=== PATIENT | male | born 1955 | race Caucasian/White ===

== ENCOUNTER 2017-10-04 15:19 | Inpatient (IN) | payer MEDICARE, MEDICAID ==
[~2017-10-04] VITALS: Ht 180.3 cm; Wt 113.6 kg
[~2017-10-04 15:19] MED LIST: ALLO100T PO; ASPI-1053 PO; ATEN50TA PO; ATOR10TA70 PO; BACL10TA PO; CLON-527 PO; DOCU100C41 PO; EZET10TA14 PO; FENO134C PO; GABA-530 PO; GLIM2TAB2 PO; HYDR-565 PO; HYDR25TA4 PO; ISOS30TA6 PO; LANTUS SQ; LISI-604 PO; MELO-100 PO; METF850T PO; NITR0.4T51 SL; OMEP40CA37 PO; POTA8TAB8 PO; SAXA5TAB PO
[2017-10-04 15:53] LABS: HEMATOCRIT 41.8 % (42.0-52.0); HEMOGLOBIN 14.5 g/dl (14.0-17.9); MEAN CORPUSCULAR HEMOGLOBIN 30.6 PG (27.0-31.0); MEAN CORPUSCULAR HGB CONC 34.6 % (33.0-36.5); MEAN CORPUSCULAR VOLUME 88.2 FL (78-98); MEAN PLATELET VOLUME 8.6 FL (7.4-10.4); PLATELET COUNT 186 X10'3 (140-440); RED BLOOD COUNT 4.73 X10'6 (4.70-6.10); WHITE BLOOD COUNT 5.5 X10'3 (4.5-11.0)
[2017-10-04 16:02] LABS: PLATELET ESTIMATE NORMAL; TOTAL CELLS COUNTED 100
[2017-10-04 16:24] LABS: TOTAL CARBON DIOXIDE 16.4 MMOL/L (24-32); TROPONIN I < 0.04 NG/ML (0.0-0.05)
[2017-10-04 16:42] LABS: ALANINE AMINOTRANSFERASE 43 U/L (12-78); ALBUMIN 3.6 G/DL (3.4-5.0); ALBUMIN/GLOBULIN RATIO 1.1 (1.1-1.5); ALKALINE PHOSPHATASE 79 IU/L (46-116); ANION GAP 18 (8-16); BILIRUBIN,TOTAL 0.5 MG/DL (0.1-1.0); BLOOD UREA NITROGEN 20 MG/DL (7-18); BUN/CREATININE RATIO 18.3 (5.4-32.0); CALCIUM 10.1 MG/DL (8.5-10.1); CHLORIDE 99 MMOL/L (99-107); CREATININE 1.09 MG/DL (0.60-1.10); GLUCOSE 323 MG/DL (70-104); POTASSIUM 4.5 MMOL/L (3.5-5.1); SODIUM 133 MMOL/L (135-145); eGFR 69 ML/MIN
[2017-10-04 16:43] LABS: ASPARTATE AMINO TRANSFERASE 25 U/L (10-37)
[2017-10-04 17:13] LABS: ETHANOL < 0.010 GM/DL (0.0-0.010)
[2017-10-04 18:10] LABS: INR 0.9 INR; PARTIAL THROMBOPLASTIN TIME 25.6 SECONDS (24.5-30.9); PROTHROMBIN TIME 11.8 SECONDS (9-12)
[2017-10-04] MEDS ORDERED: normal saline 1000ML IV soln IVB ONE (18:15)
[2017-10-04] MEDS ORDERED: insulin regular, DKA only 100 UNIT in normal saline 100ml IV soln 99 ML IV SCH ×2 (18:37)
[2017-10-04] MEDS ORDERED: potassium CL 20mEq in D5-1/2NS 1,000 ML IV PRN (19:03)
[2017-10-04] MEDS ORDERED: normal saline 1000ml 1,000 ML IV SCH (19:03)
[2017-10-04 19:05] LABS: ABG HCO3 24.1 mmol/L (22.0-26.0); ABG OXYGEN SATURATION 93.3 % (95-98); ABG PCO2 (T) 40.7 mmHg (35.0-48.0); ABG PH (T) 7.388 (7.350-7.450); ABG PO2 (T) 68.4 mmHg (83-108); ALLEN'S TEST Positive; FCOHb 1.4 % (0.5-1.5); FMetHb 0.3 % (0.3-1.12); FO2Hb 91.7 % (94-100); PATIENT TEMPERATURE 36.6; TOTAL HEMOGLOBIN 14.4 G/dl (14.0-18.0)
[2017-10-04] MEDS: K and/or MAG REPLACEMENT MC SCH (19:05)
[2017-10-04] MEDS ORDERED: potassium Cl 40MEQ/NS 500ml 500 ML IV PRN ×2 (19:05)
[2017-10-04] MEDS ORDERED: potassium Cl 20 mEq SR tablet PO PRN ×2 (19:05)
[2017-10-04 20:05] LABS: CLARITY,URINE CLEAR (Clear); COLOR,URINE YELLOW (Yellow); GLUCOSE, URINE >=1000 mg/dl (Neg); KETONES,URINE NEGATIVE (Neg); LEUKOCYTE ESTERASE ,URINE NEGATIVE (Neg); NITRITES, URINE NEGATIVE (Neg); OCCULT BLOOD,URINE NEGATIVE (Neg); PROTEIN,URINE NEGATIVE (Neg); UROBILINOGEN,URINE 0.2 E.U/dL (0.2-1.0)
[2017-10-04] MEDS ORDERED: clonazePAM 1mg tablet PO PRN (20:10)
[2017-10-04 20:15] LABS: UA COLLECTION TYPE URINAL
[2017-10-04 20:16] LABS: BACTERIA,URINE NONE SEEN /HPF (Neg); RBC,URINE NONE SEEN /HPF (0-2); SQUAMOUS EPITHELIAL CELL,UR FEW /LPF (FEW); WBC,URINE NONE SEEN /HPF (0-4)
[2017-10-04] MEDS: gabapentin 400mg capsule PO SCH (20:50)
[2017-10-04] MEDS: HYDROcodone/acetaminophen 10/325mg tab PO PRN (20:51)
[2017-10-04] MEDS: normal saline 1000ml 1,000 ML IV SCH ×2 (20:51→23:07)
[2017-10-04 20:58] LABS: HEMOGLOBIN A1C 10.7 % (4.5-6.2)
[2017-10-04 20:59] LABS: ALBUMIN 3.2 G/DL (3.4-5.0); BLOOD UREA NITROGEN 16 MG/DL (7-18); BUN/CREATININE RATIO 19.5 (5.4-32.0); CALCIUM 8.8 MG/DL (8.5-10.1); CHLORIDE 102 MMOL/L (99-107); CREATININE 0.82 MG/DL (0.60-1.10); eGFR > 90 ML/MIN
[2017-10-04 21:12] LABS: GLUCOSE 120 MG/DL (70-104)
[2017-10-04 21:13] LABS: ACETAMINOPHEN < 2.0 UG/ML (10-30); ANION GAP 21 (8-16); POTASSIUM 3.8 MMOL/L (3.5-5.1); SODIUM 137 MMOL/L (135-145)
[2017-10-04 21:15] LABS: TOTAL CARBON DIOXIDE 14.3 MMOL/L (24-32)
[2017-10-04 22:40] VITALS: BP 140/68
[2017-10-05] VITALS (7 sets, daily range): BP systolic 107–131; BP diastolic 54–75
[2017-10-05] MEDS ORDERED: MESSAGE TO PHARMACY PO ONE (00:05)
[2017-10-05] MEDS ORDERED: dextrose ORAL solution 15 GM/59 ML bottle PO PRN ×2 (00:05)
[2017-10-05] MEDS ORDERED: dextrose 50%-water 50ml dispensing syringe IV PRN ×2 (00:05)
[2017-10-05] MEDS ORDERED: glucagon, human recombinant 1mg kit SUBCUT PRN (00:05)
[2017-10-05] MEDS ORDERED: insulin glargine (Lantus) pen - multi-dose SQ ONE (00:17)
[2017-10-05] MEDS ORDERED: insulin Lispro (HumaLOG) vial - multi-dose SQ ONE (00:17)
[2017-10-05] MEDS: pantoprazole 40mg Tablet.DR PO SCH ×2 (00:35→09:31)
[2017-10-05] MEDS: insulin Lispro (HumaLOG) vial - multi-dose SQ SCH ×3 (00:38→19:10)
[2017-10-05] MEDS: insulin glargine (Lantus) pen - multi-dose SQ SCH ×2 (00:39→21:54)
[2017-10-05 01:40] LABS: ALBUMIN 3.1 G/DL (3.4-5.0); BLOOD UREA NITROGEN 16 MG/DL (7-18); BUN/CREATININE RATIO 19.3 (5.4-32.0); CALCIUM 9.1 MG/DL (8.5-10.1); CHLORIDE 101 MMOL/L (99-107); CREATININE 0.83 MG/DL (0.60-1.10); HDL CHOLESTEROL 21 MG/DL (35-60); LDL CHOLESTEROL 52 MG/DL (50-100); TOTAL CARBON DIOXIDE 15.6 MMOL/L (24-32); eGFR > 90 ML/MIN
[2017-10-05 01:41] LABS: TRIGLYCERIDES 1630 MG/DL (20-135)
[2017-10-05 01:57] LABS: ANION GAP 20 (8-16); CHOL/HDL RATIO 13.7 (0.00-4.99); CHOLESTEROL 288 MG/DL (0-200); GLUCOSE 336 MG/DL (70-104); SODIUM 137 MMOL/L (135-145)
[2017-10-05] MEDS: HYDROcodone/acetaminophen 10/325mg tab PO PRN ×3 (05:29→20:14)
[2017-10-05] MEDS: normal saline 1000ml 1,000 ML IV SCH (05:31)
[2017-10-05] MEDS ORDERED: atenolol 50mg tablet PO SCH (08:00)
[2017-10-05] MEDS ORDERED: lisinopril 10 MG tablet PO SCH (08:00)
[2017-10-05] MEDS ORDERED: LORazepam 2 mg/ml vial IM PRN (09:05)
[2017-10-05] MEDS: gabapentin 400mg capsule PO SCH ×3 (09:16→21:54)
[2017-10-05] MEDS: atorvastatin 20mg tablet PO SCH (09:16)
[2017-10-05] MEDS: baclofen 10mg tablet PO SCH ×2 (09:16→20:09)
[2017-10-05] MEDS: clopidogrel 75mg tablet PO SCH (09:16)
[2017-10-05] MEDS: aspirin 81mg tablet.DR PO SCH (09:17)
[2017-10-05] MEDS: isosorbide mononitrate 30mg tab.SR.24H PO SCH (09:17)
[2017-10-05] MEDS: K and/or MAG REPLACEMENT MC SCH (09:19)
[2017-10-06 02:02] VITALS: BP_SYST 129; BP_SYST 143; BP_DIAS 69; BP_DIAS 86
[2017-10-06] MEDS: HYDROcodone/acetaminophen 10/325mg tab PO PRN ×4 (02:11→23:11)
[2017-10-06 06:00] VITALS: BP 135/62
[2017-10-06] MEDS: isosorbide mononitrate 30mg tab.SR.24H PO SCH (08:00)
[2017-10-06] MEDS: K and/or MAG REPLACEMENT MC SCH (08:00)
[2017-10-06] MEDS: baclofen 10mg tablet PO SCH ×2 (08:08→19:27)
[2017-10-06] MEDS: gabapentin 400mg capsule PO SCH ×4 (08:08→23:08)
[2017-10-06] MEDS: clopidogrel 75mg tablet PO SCH (08:08)
[2017-10-06] MEDS: aspirin 81mg tablet.DR PO SCH (08:08)
[2017-10-06] MEDS: atorvastatin 20mg tablet PO SCH (08:08)
[2017-10-06] MEDS: pantoprazole 40mg Tablet.DR PO SCH (08:09)
[2017-10-06] MEDS: insulin Lispro (HumaLOG) vial - multi-dose SQ SCH ×3 (08:24→19:23)
[2017-10-06 12:04] VITALS: BP 138/71
[2017-10-06 15:14] VITALS: BP 106/76
[2017-10-06 18:00] VITALS: BP 123/71
[2017-10-06] MEDS: insulin glargine (Lantus) pen - multi-dose SQ SCH (21:24)
[2017-10-06 22:00] VITALS: BP 127/68
[2017-10-07] MEDS: HYDROcodone/acetaminophen 10/325mg tab PO PRN ×2 (04:44→10:35)
[2017-10-07 06:42] VITALS: BP 139/60
[2017-10-07] MEDS: pantoprazole 40mg Tablet.DR PO SCH (07:14)
[2017-10-07] MEDS: gabapentin 400mg capsule PO SCH (07:14)
[2017-10-07] MEDS: aspirin 81mg tablet.DR PO SCH (07:14)
[2017-10-07] MEDS: baclofen 10mg tablet PO SCH (07:14)
[2017-10-07] MEDS: atorvastatin 20mg tablet PO SCH (07:15)
[2017-10-07] MEDS: isosorbide mononitrate 30mg tab.SR.24H PO SCH (07:15)
[2017-10-07] MEDS: clopidogrel 75mg tablet PO SCH (07:15)
[2017-10-07] MEDS: K and/or MAG REPLACEMENT MC SCH (08:00)
== END 2017-10-07 14:45 | DRG 64 ==
LOC: ER 15:19 → ED HOLD 20:07 → EDBEDREQ 21:49 → ORTHO 4S 22:37
PROVIDERS: ADMIT Family Medicine; ATTEND Family Medicine
DX: I63.9 Cerebral infarction, unspecified (principal); E11.10 Type 2 diabetes mellitus with ketoacidosis without coma; E11.40 Type 2 diabetes mellitus with diabetic neuropathy, unspecified; E11.51 Type 2 diabetes mellitus with diabetic peripheral angiopathy without gangrene; E87.2 Acidosis; G81.94 Hemiplegia, unspecified affecting left nondominant side; E78.5 Hyperlipidemia, unspecified; G47.30 Sleep apnea, unspecified; I11.0 Hypertensive heart disease with heart failure; I25.10 Atherosclerotic heart disease of native coronary artery without angina pectoris; I50.9 Heart failure, unspecified; J44.9 Chronic obstructive pulmonary disease, unspecified; K21.9 Gastro-esophageal reflux disease without esophagitis; M10.9 Gout, unspecified; M19.90 Unspecified osteoarthritis, unspecified site; G89.29 Other chronic pain; M54.5 Low back pain; R47.1 Dysarthria and anarthria; I25.2 Old myocardial infarction; Z95.1 Presence of aortocoronary bypass graft; Z95.5 Presence of coronary angioplasty implant and graft; Z88.1 Allergy status to other antibiotic agents; Z79.82 Long term (current) use of aspirin; Z79.899 Other long term (current) drug therapy; Z79.4 Long term (current) use of insulin; Z87.891 Personal history of nicotine dependence; Z82.49 Family history of ischemic heart disease and other diseases of the circulatory system
CPT/HCPCS: 36415; 36600; 70450; 70544; 70551; 71045; 80048; 80053; 80061; 80320; 80329; 81001; 82803; 82948; 83036; 83605; 83880; 84484; 85018; 85025; 87070; 92507; 92616; 93005; 93306; 93880; 96360; 96361; 97110; 97116; 97161; 97530; 99285; J1815; J2060; J7030

== ENCOUNTER 2018-06-10 02:41 | Emergency (ER) | payer MEDICARE, MEDICAID ==
[~2018-06-10] VITALS: Ht 180.3 cm; Wt 112.2 kg
[~2018-06-10 02:41] MED LIST changes: -ATOR10TA70 PO; -FENO134C PO; -GLIM2TAB2 PO; +HYDR-4353 PO; -HYDR-565 PO; -SAXA5TAB PO
[2018-06-10] MEDS ORDERED: nitroGLYCERIN 0.4mg SUBLingual tab SL PRN (02:50)
[2018-06-10] MEDS ORDERED: normal saline 1000ML IV soln IVB ONE (03:00)
[2018-06-10 03:09] LABS: BASOPHILS # (AUTO) 0.1 X10'3 (0-0.2); BASOPHILS % (AUTO) 0.8 % (0-1); EOSINOPHILS # (AUTO) 0.3 X10'3 (0-0.9); EOSINOPHILS % (AUTO) 4.1 % (0-6); HEMATOCRIT 41.8 % (42.0-52.0); HEMOGLOBIN 14.2 g/dl (14.0-17.9); LYMPHOCYTES # (AUTO) 2.4 X10'3 (1.1-4.8); LYMPHOCYTES % (AUTO) 34.1 % (21-51); MEAN CORPUSCULAR HEMOGLOBIN 30.1 PG (27.0-31.0); MEAN CORPUSCULAR VOLUME 88.5 FL (78-98); MEAN PLATELET VOLUME 8.3 FL (7.4-10.4); MONOCYTES # (AUTO) 0.4 X10'3 (0-0.9); MONOCYTES % (AUTO) 5.8 % (2-12); NEUTROPHILS # (AUTO) 3.9 X10'3 (1.8-7.7); NEUTROPHILS % (AUTO) 55.2 % (42-75); PLATELET COUNT 181 X10'3 (140-440); RED BLOOD COUNT 4.72 X10'6 (4.70-6.10); RED CELL DISTRIBUTION WIDTH 14.4 % (11.5-14.5)
[2018-06-10 03:20] LABS: INR 0.9 INR; PARTIAL THROMBOPLASTIN TIME 29 SECONDS (22-32); PROTHROMBIN TIME 9.6 SECONDS (9.0-12.0)
[2018-06-10 03:39] LABS: ALANINE AMINOTRANSFERASE 38 U/L (12-78); ALBUMIN 3.4 G/DL (3.4-5.0); ALBUMIN/GLOBULIN RATIO 1.1 (1.1-1.5); ALKALINE PHOSPHATASE 80 IU/L (46-116); ANION GAP 13 (8-16); BILIRUBIN,TOTAL 0.3 MG/DL (0.1-1.0); BLOOD UREA NITROGEN 18 MG/DL (7-18); BUN/CREATININE RATIO 16.5 (5.4-32.0); CALCIUM 8.6 MG/DL (8.5-10.1); CHLORIDE 100 MMOL/L (99-107); CREATININE 1.09 MG/DL (0.60-1.10); SODIUM 137 MMOL/L (135-145); TOTAL CARBON DIOXIDE 23.6 MMOL/L (24-32); TOTAL PROTEIN 6.6 G/DL (6.4-8.2); eGFR 69 ML/MIN
[2018-06-10 03:42] LABS: ASPARTATE AMINO TRANSFERASE 4 U/L (10-37); GLUCOSE 250 MG/DL (70-104); POTASSIUM 3.6 MMOL/L (3.5-5.1)
[2018-06-10 05:47] VITALS: BP 134/66
== END 2018-06-10 05:50 | disposition home or self-care (01) ==
LOC: ER 02:41
DX: R07.89 Other chest pain (principal); I25.10 Atherosclerotic heart disease of native coronary artery without angina pectoris; I11.0 Hypertensive heart disease with heart failure; I50.9 Heart failure, unspecified; E78.00 Pure hypercholesterolemia, unspecified; I25.2 Old myocardial infarction; J44.9 Chronic obstructive pulmonary disease, unspecified; K21.9 Gastro-esophageal reflux disease without esophagitis; E11.9 Type 2 diabetes mellitus without complications; M19.90 Unspecified osteoarthritis, unspecified site; G89.29 Other chronic pain; M10.9 Gout, unspecified; Z95.5 Presence of coronary angioplasty implant and graft; Z95.1 Presence of aortocoronary bypass graft; Z98.890 Other specified postprocedural states; Z87.891 Personal history of nicotine dependence; Z88.1 Allergy status to other antibiotic agents; Z79.82 Long term (current) use of aspirin; Z79.899 Other long term (current) drug therapy; Z79.4 Long term (current) use of insulin
CPT/HCPCS: 36415; 71045; 80053; 82948; 83880; 84484; 85025; 85610; 85730; 93005; 99284; J7030

== ENCOUNTER 2018-07-13 14:01 | Day surgery (SDC) | payer MEDICARE, MEDICAID ==
[2018-07-08 09:11] LABS: BASOPHILS % (AUTO) 0.5 % (0-1); EOSINOPHILS # (AUTO) 0.3 X10'3 (0-0.9); EOSINOPHILS % (AUTO) 3.6 % (0-6); HEMATOCRIT 50.1 % (42.0-52.0); HEMOGLOBIN 16.5 g/dl (14.0-17.9); LYMPHOCYTES % (AUTO) 27.7 % (21-51); MEAN CORPUSCULAR HEMOGLOBIN 29.5 PG (27.0-31.0); MEAN CORPUSCULAR VOLUME 89.6 FL (78-98); MEAN PLATELET VOLUME 8.6 FL (7.4-10.4); MONOCYTES # (AUTO) 0.3 X10'3 (0-0.9); MONOCYTES % (AUTO) 4.4 % (2-12); NEUTROPHILS # (AUTO) 4.5 X10'3 (1.8-7.7); NEUTROPHILS % (AUTO) 63.8 % (42-75); PLATELET COUNT 202 X10'3 (140-440); RED BLOOD COUNT 5.59 X10'6 (4.70-6.10); RED CELL DISTRIBUTION WIDTH 14.4 % (11.5-14.5); WHITE BLOOD COUNT 7.1 X10'3 (4.5-11.0)
[2018-07-08 09:38] LABS: PARTIAL THROMBOPLASTIN TIME 30 SECONDS (22-32); PROTHROMBIN TIME 9.9 SECONDS (9.0-12.0)
[2018-07-08 09:45] LABS: ALBUMIN 4.1 G/DL (3.4-5.0); ANION GAP 10 (8-16); BLOOD UREA NITROGEN 12 MG/DL (7-18); BUN/CREATININE RATIO 12.9 (5.4-32.0); CALCIUM 9.7 MG/DL (8.5-10.1); CHLORIDE 101 MMOL/L (99-107); CREATININE 0.93 MG/DL (0.60-1.10); GLUCOSE 174 MG/DL (70-104); POTASSIUM 4.1 MMOL/L (3.5-5.1); SODIUM 140 MMOL/L (135-145); TOTAL CARBON DIOXIDE 28.9 MMOL/L (24-32); eGFR 83 ML/MIN
[~2018-07-13] VITALS: Ht 180.3 cm; Wt 112.9 kg
[2018-07-13] MEDS ORDERED: LIDOcaine/PRILOcaine 5gm cream TP ONE (14:25)
[2018-07-13] MEDS ORDERED: diphenhydrAMINE 25mg capsule PO PRN (14:25)
[2018-07-13] MEDS ORDERED: LORazepam 0.5 MG tablet PO PRN (14:25)
[2018-07-13 14:30] VITALS: BP 126/77
[2018-07-13] MEDS ORDERED: GABA800T11 PO (14:57)
[2018-07-13] MEDS ORDERED: CLOP75TA35 PO (14:57)
[2018-07-13] MEDS ORDERED: INSU100V9 SQ (14:57)
[2018-07-13] MEDS ORDERED: fentaNYL/PF 50MCG/1 ML 2ML syringe ONE (18:50)
[2018-07-13] MEDS ORDERED: LIDOcaine 1% (10mg/ml)w/preservative injection 20ml MDV ONE (18:50)
[2018-07-13] MEDS ORDERED: midazolam 2 mg/2 ml injection ONE (18:50)
[2018-07-13] MEDS ORDERED: iohexol 350MG/ML 100ml bottle IV ONE (18:50)
[2018-07-13] MEDS ORDERED: iohexol 350 MG/ML 50ML vial IV ONE ×2 (19:12→19:14)
[2018-07-13 19:30] VITALS: BP 127/68
[2018-07-13] MEDS ORDERED: nitroGLYCERIN 0.4mg SUBLingual tab SL PRN (19:45)
[2018-07-13] MEDS ORDERED: proCHLORperazine 10 MG/2 ml inj IV PRN (19:45)
[2018-07-13] MEDS ORDERED: ondansetron/PF 4mg/2ml inj IV PRN (19:45)
[2018-07-13] MEDS ORDERED: HYDROcodone/acetaminophen 5mg/325mg tablet PO PRN (19:45)
[2018-07-13] MEDS ORDERED: OXAZEpam 15mg capsule PO PRN (19:45)
[2018-07-13] MEDS ORDERED: HYDROcodone/acetaminophen 10/325mg tab PO PRN (19:45)
[2018-07-13 19:46] VITALS: BP 129/69
[2018-07-13 20:01] VITALS: BP 128/58
[2018-07-13 20:16] VITALS: BP 109/52
[2018-07-13 20:40] VITALS: BP 126/61
== END 2018-07-13 21:05 | disposition home or self-care (01) ==
LOC: SSTAY O 14:01
PROVIDERS: ATTEND Internal Medicine Interventional Cardiology
DX: I25.810 Atherosclerosis of coronary artery bypass graft(s) without angina pectoris (principal); I10 Essential (primary) hypertension; E78.5 Hyperlipidemia, unspecified; G47.33 Obstructive sleep apnea (adult) (pediatric); I35.1 Nonrheumatic aortic (valve) insufficiency; I65.29 Occlusion and stenosis of unspecified carotid artery; E11.42 Type 2 diabetes mellitus with diabetic polyneuropathy; J44.9 Chronic obstructive pulmonary disease, unspecified; K21.9 Gastro-esophageal reflux disease without esophagitis; M06.9 Rheumatoid arthritis, unspecified; H91.8X3 Other specified hearing loss, bilateral; F10.21 Alcohol dependence, in remission; F15.11 Other stimulant abuse, in remission; Z86.79 Personal history of other diseases of the circulatory system; Z86.14 Personal history of Methicillin resistant Staphylococcus aureus infection; Z95.1 Presence of aortocoronary bypass graft; Z95.5 Presence of coronary angioplasty implant and graft; Z79.82 Long term (current) use of aspirin; Z79.84 Long term (current) use of oral hypoglycemic drugs; Z79.891 Long term (current) use of opiate analgesic; Z79.4 Long term (current) use of insulin; Z79.01 Long term (current) use of anticoagulants; Z88.1 Allergy status to other antibiotic agents; Z86.73 Personal history of transient ischemic attack (TIA), and cerebral infarction without residual deficits; Z86.74 Personal history of sudden cardiac arrest; Z87.891 Personal history of nicotine dependence; Z87.01 Personal history of pneumonia (recurrent); Z98.890 Other specified postprocedural states; Z79.899 Other long term (current) drug therapy; Z88.8 Allergy status to other drugs, medicaments and biological substances; Z82.49 Family history of ischemic heart disease and other diseases of the circulatory system; Z83.6 Family history of other diseases of the respiratory system
CPT/HCPCS: 36415; 80048; 82948; 85025; 85610; 85730; 93005; 93459; 93567; 99152; 99153; A6257; J1644; J2001; J2250; J3010; Q0163; Q9967; A4620; C1769

== ENCOUNTER 2018-12-24 04:16 | Emergency (ER) | payer MEDICARE, MEDICAID ==
[~2018-12-24] VITALS: Ht 182.9 cm; Wt 112.7 kg
[~2018-12-24 04:16] MED LIST changes: +CLOP75TA35 PO; -GABA-530 PO; +GABA800T11 PO; +INSU100V9 SQ; -LANTUS SQ
[2018-12-24 04:17] VITALS: BP 149/99
[2018-12-24] MEDS ORDERED: AMOX-422 PO (04:21)
[2018-12-24] MEDS ORDERED: amox tr/potassium clavulanate 875/125mg TAB PO ONE (04:25)
== END 2018-12-24 04:37 | disposition home or self-care (01) ==
LOC: ER 04:17
DX: K04.7 Periapical abscess without sinus (principal); K02.9 Dental caries, unspecified; R60.9 Edema, unspecified; I25.10 Atherosclerotic heart disease of native coronary artery without angina pectoris; E78.00 Pure hypercholesterolemia, unspecified; I25.2 Old myocardial infarction; J44.9 Chronic obstructive pulmonary disease, unspecified; K21.9 Gastro-esophageal reflux disease without esophagitis; E11.9 Type 2 diabetes mellitus without complications; M19.90 Unspecified osteoarthritis, unspecified site; G89.29 Other chronic pain; M10.9 Gout, unspecified; I11.0 Hypertensive heart disease with heart failure; I50.9 Heart failure, unspecified; Z95.5 Presence of coronary angioplasty implant and graft; Z95.1 Presence of aortocoronary bypass graft; Z98.890 Other specified postprocedural states; Z87.891 Personal history of nicotine dependence; Z86.14 Personal history of Methicillin resistant Staphylococcus aureus infection; Z79.4 Long term (current) use of insulin; Z88.1 Allergy status to other antibiotic agents; Z79.899 Other long term (current) drug therapy
CPT/HCPCS: 99283

== ENCOUNTER 2019-02-21 02:23 | Emergency (ER) | payer MEDICARE, MEDICAID ==
[~2019-02-21] VITALS: Ht 182.9 cm; Wt 112.7 kg
[~2019-02-21 02:23] MED LIST changes: -EZET10TA14 PO; +EZET10TA21 PO; +OMEP40CA13 PO; -OMEP40CA37 PO
[2019-02-21] MEDS ORDERED: dexamethasone sod phosphate 10mg/ml inj IV STA ×2 (02:47→22:53)
[2019-02-21] MEDS ORDERED: diphenhydrAMINE 50 mg/ml inj IV ONE (02:50)
[2019-02-21] MEDS ORDERED: famotidine/PF 10 mg/ml inj IV ONE (02:50)
[2019-02-21] MEDS ORDERED: metroNIDAZOLE-Flagyl 500mg/NS 100 ML IV STA ×3 (02:56→22:53)
[2019-02-21] MEDS ORDERED: CLINDAMYCIN/D5W 900mg/50ml 50 ML IV ONE ×2 (03:00→22:55)
[2019-02-21] MEDS ORDERED: normal saline 1000ML IV soln IVB ONE (03:05)
[2019-02-21] MEDS ORDERED: iohexol 300mg/ml 100ml inj. ONE (04:18)
--- NOTE | 2019-02-21 05:13 | NUR ---
Per Per, Lab- another 6ml of blood need for ordered labs. Primary RN Maribel notified.
[2019-02-21 05:25] LABS: ALANINE AMINOTRANSFERASE 40 U/L (12-78); ALBUMIN 3.8 G/DL (3.4-5.0); ALBUMIN/GLOBULIN RATIO 1.4 (1.1-1.5); ALKALINE PHOSPHATASE 64 IU/L (46-116); ANION GAP 9 (8-16); ASPARTATE AMINO TRANSFERASE 21 U/L (10-37); BILIRUBIN,TOTAL 0.9 MG/DL (0.1-1.0); BLOOD UREA NITROGEN 14 MG/DL (7-18); BUN/CREATININE RATIO 15.4 (5.4-32.0); CALCIUM 9.1 MG/DL (8.5-10.1); CHLORIDE 103 MMOL/L (99-107); CREATININE 0.91 MG/DL (0.60-1.10); GLUCOSE 161 MG/DL (70-104); MAGNESIUM 1.7 MG/DL (1.5-2.4); SODIUM 138 MMOL/L (135-145); TOTAL CARBON DIOXIDE 25.6 MMOL/L (24-32); TOTAL PROTEIN 6.5 G/DL (6.4-8.2); eGFR 84 ML/MIN
[2019-02-21 05:27] LABS: BASOPHILS % (AUTO) 0.2 % (0-1); EOSINOPHILS # (AUTO) 0.1 X10'3 (0-0.9); EOSINOPHILS % (AUTO) 1.4 % (0-6); HEMATOCRIT 41.7 % (42.0-52.0); HEMOGLOBIN 14.1 g/dl (14.0-17.9); LYMPHOCYTES # (AUTO) 0.8 X10'3 (1.1-4.8); MEAN CORPUSCULAR HEMOGLOBIN 30.5 PG (27.0-31.0); MEAN CORPUSCULAR HGB CONC 33.8 g/dL (33.0-36.5); MEAN CORPUSCULAR VOLUME 90.4 FL (78-98); MEAN PLATELET VOLUME 8.3 FL (7.4-10.4); MONOCYTES # (AUTO) 0.3 X10'3 (0-0.9); NEUTROPHILS # (AUTO) 6.2 X10'3 (1.8-7.7); NEUTROPHILS % (AUTO) 83.4 % (42-75); PLATELET COUNT 135 X10'3 (140-440); RED BLOOD COUNT 4.62 X10'6 (4.70-6.10); RED CELL DISTRIBUTION WIDTH 14.6 % (11.5-14.5); WHITE BLOOD COUNT 7.4 X10'3 (4.5-11.0)
--- NOTE | 2019-02-21 06:34 | NUR ---
pt out to ct via val with health care facilities inspector
--- NOTE | 2019-02-21 06:51 | NUR ---
RETURNED FROM CT.
[2019-02-21] MEDS ORDERED: MESSAGE TO NURSING PO ONE (07:00)
[2019-02-21] MEDS ORDERED: clonazePAM 1mg tablet PO ONE (08:05)
[2019-02-21] MEDS ORDERED: DULO60CA65 PO (12:42)
[2019-02-21] MEDS ORDERED: OMEP20CA11 PO (12:44)
[2019-02-21] MEDS ORDERED: METF-438 PO (12:45)
[2019-02-21] MEDS ORDERED: ATOR40TA72 PO (12:48)
[2019-02-21] MEDS ORDERED: HYDROcodone/acetaminophen 10/325mg tab PO PRN (13:35)
[2019-02-21] MEDS ORDERED: nitroGLYCERIN 0.4mg SUBLingual tab SL PRN (13:35)
[2019-02-21] MEDS ORDERED: potassium chloride 8mEq ER tablet PO SCH (14:00)
[2019-02-21] MEDS ORDERED: docusate sod 100mg capsule PO SCH (14:00)
[2019-02-21] MEDS ORDERED: duloxetine 30mg CAPSULE.DR PO SCH (14:00)
[2019-02-21] MEDS ORDERED: pantoprazole 40mg Tablet.DR PO SCH (14:00)
[2019-02-21] MEDS ORDERED: aspirin 81mg tab.chew PO SCH (14:00)
[2019-02-21] MEDS ORDERED: isosorbide mononitrate 30mg tab.SR.24H PO SCH (14:00)
[2019-02-21] MEDS ORDERED: lisinopril 5mg tablet PO SCH (14:00)
[2019-02-21] MEDS ORDERED: clopidogrel 75mg tablet PO SCH (14:00)
[2019-02-21] MEDS ORDERED: ezetimibe 10mg tablet PO SCH (14:00)
[2019-02-21] MEDS ORDERED: HYDROchlorothiazide 25mg tablet PO SCH (14:00)
[2019-02-21] MEDS ORDERED: atenolol 50mg tablet PO SCH (14:00)
[2019-02-21] MEDS ORDERED: atorvastatin 20mg tablet PO SCH (14:00)
[2019-02-21] MEDS: gabapentin 400mg capsule PO SCH ×2 (14:38→20:52)
[2019-02-21] MEDS: clonazePAM 1mg tablet PO SCH ×2 (14:39→20:37)
[2019-02-21] MEDS: metFORMIN 500mg tablet PO SCH ×2 (14:39→20:00)
[2019-02-21] MEDS ORDERED: clindamycin 600mg/D5W 50ml 50 ML IV ONE (15:20)
--- NOTE | 2019-02-21 20:27 | NUR ---
Patient continues to rest comfortably in the hallway awaiting transportation to [facility]. Patient changed into a gown for transport. Report called to LISET Ash of [facility].
[2019-02-21] MEDS ORDERED: insulin glargine (Lantus) pen - multi-dose SQ SCH (21:00)
--- NOTE | 2019-02-21 21:52 | NUR ---
Patient sleeping comfortably in the [facility].
[2019-02-21] MEDS ORDERED: metroNIDAZOLE-Flagyl 500mg/NS 100 ML IV SCH (23:00)
--- NOTE | 2019-02-21 23:01 | NUR ---
Updated [facility] charge nurse Vance on the delayed patient transfer due to heavy EMS traffic. He requests a phone call when EMS arrives for transport.
[2019-02-21 23:34] VITALS: BP 136/64
--- NOTE | 2019-02-21 23:36 | NUR ---
EMS transport has arrived for the patient. Vance contacted at [place] to update him.
[2019-02-22] MEDS ORDERED: CLINDAMYCIN/D5W 900mg/50ml 50 ML IV SCH (07:00)
[2019-02-22] MEDS ORDERED: dexamethasone sod phosphate 10mg/ml inj IV SCH (08:00)
[2019-02-22] MEDS ORDERED: allopurinol 300 MG tablet PO SCH (08:00)
== END 2019-02-21 23:37 | disposition short-term general hospital (02) ==
LOC: ER 02:24
DX: L02.01 Cutaneous abscess of face (principal); K04.7 Periapical abscess without sinus; Z88.1 Allergy status to other antibiotic agents; Z79.82 Long term (current) use of aspirin; Z79.4 Long term (current) use of insulin; Z79.899 Other long term (current) drug therapy; Z79.84 Long term (current) use of oral hypoglycemic drugs
CPT/HCPCS: 36415; 70487; 80053; 82948; 83605; 83735; 84145; 85025; 87040; 96365; 96366; 96368; 96372; 96375; 96376; 99285; J1100; J3490; J7040; Q9967; J1815

== ENCOUNTER 2019-03-08 05:40 | Emergency (ER) | payer MEDICARE, MEDICAID ==
[~2019-03-08] VITALS: Ht 180.3 cm; Wt 107.0 kg
[~2019-03-08 05:40] MED LIST changes: +ATOR40TA72 PO; -BACL10TA PO; +DULO60CA65 PO; -MELO-100 PO; +METF-438 PO; -METF850T PO; +OMEP20CA11 PO; -OMEP40CA13 PO
--- NOTE | 2019-03-08 06:31 | NUR ---
surgicil applied to gums per Dr. Grace order.
[2019-03-08 07:01] VITALS: BP 133/73
== END 2019-03-08 07:03 | disposition home or self-care (01) ==
LOC: ER 05:40
DX: K91.841 Postprocedural hemorrhage of a digestive system organ or structure following other procedure (principal); I25.10 Atherosclerotic heart disease of native coronary artery without angina pectoris; I11.0 Hypertensive heart disease with heart failure; I50.9 Heart failure, unspecified; E78.00 Pure hypercholesterolemia, unspecified; I25.2 Old myocardial infarction; J44.9 Chronic obstructive pulmonary disease, unspecified; G47.30 Sleep apnea, unspecified; K21.9 Gastro-esophageal reflux disease without esophagitis; M19.90 Unspecified osteoarthritis, unspecified site; G89.29 Other chronic pain; M10.9 Gout, unspecified; Z86.14 Personal history of Methicillin resistant Staphylococcus aureus infection; Z98.61 Coronary angioplasty status; Z95.1 Presence of aortocoronary bypass graft; Z98.890 Other specified postprocedural states; Z88.1 Allergy status to other antibiotic agents; Z79.82 Long term (current) use of aspirin; Z79.4 Long term (current) use of insulin; Z79.84 Long term (current) use of oral hypoglycemic drugs; Z79.899 Other long term (current) drug therapy
CPT/HCPCS: 99283